=== PATIENT | male | born 1980 | race Caucasian/White ===

== ENCOUNTER 2018-07-23 04:35 | Emergency (ER) | payer OTHER ==
[~2018-07-23] VITALS: Ht 188 cm; Wt 104.3 kg
[~2018-07-23 04:35] MED LIST: ACID CONTROL150 MG PO; ALAVERT10 MG PO; ANUCORT-HC25 MG RC; METAMUCIL1 PKT PO; NAPROSYN500 MG PO; NASAL SPRAY30 M1 NS; NORCO 5-325 TA1 EACH PO; OCEAN45 ML NS; SALINE NASAL SP45 ML NAS; TUCKS HEMORRH28.3 GM RC; VASELINE WHITE P5 GM TP
[2018-07-23] MEDS ORDERED: SERTRALINE HCL50 MG PO (04:51)
[2018-07-23] MEDS ORDERED: SEBEX SHAMPOO118 ML TOP (04:51)
[2018-07-23] MEDS ORDERED: TOPAMAX50 MG PO (04:52)
[2018-07-23] MEDS ORDERED: ZYRTEC10 M3 PO (04:52)
[2018-07-23] MEDS ORDERED: FLOVENT DISKUS50 MCG INH (04:52)
[2018-07-23] MEDS ORDERED: CLOTRIMAZOLE TOP (04:53)
[2018-07-23] MEDS ORDERED: SINGULAIR10 MG PO (04:53)
[2018-07-23] MEDS ORDERED: NAPROXEN500 MG PO (04:54)
[2018-07-23] MEDS ORDERED: INDERAL LA60 MG PO (04:54)
== END 2018-07-23 08:46 | disposition home or self-care (01) ==
LOC: ED 04:35
DX: N13.2 Hydronephrosis with renal and ureteral calculous obstruction (principal); G40.909 Epilepsy, unspecified, not intractable, without status epilepticus; K21.9 Gastro-esophageal reflux disease without esophagitis; E78.5 Hyperlipidemia, unspecified; Z87.442 Personal history of urinary calculi; Z87.891 Personal history of nicotine dependence; Z88.2 Allergy status to sulfonamides; Z88.1 Allergy status to other antibiotic agents; Z88.8 Allergy status to other drugs, medicaments and biological substances; Z79.899 Other long term (current) drug therapy
CPT/HCPCS: 74176; 76870; 80053; 83690; 85025; 96361; 96374; 96375; 99284-25; J1170; J2405; J7030

== ENCOUNTER 2020-01-30 14:43 | Emergency (ER) | payer OTHER ==
[~2020-01-30] VITALS: Ht 188 cm; Wt 104.3 kg
[~2020-01-30 14:43] MED LIST changes: +CLOTRIMAZOLE TOP; +FLOVENT DISKUS50 MCG INH; +INDERAL LA60 MG PO; +NAPROXEN500 MG PO; +SEBEX SHAMPOO118 ML TOP; +SERTRALINE HCL50 MG PO; +SINGULAIR10 MG PO; +TOPAMAX50 MG PO; +ZYRTEC10 M3 PO
[2020-01-30] MEDS ORDERED: FAMOTIDINE40 MG PO (14:59)
== END 2020-01-30 20:58 | disposition home or self-care (01) ==
LOC: ED 14:43
DX: N13.2 Hydronephrosis with renal and ureteral calculous obstruction (principal); K80.20 Calculus of gallbladder without cholecystitis without obstruction; Z87.442 Personal history of urinary calculi; K21.9 Gastro-esophageal reflux disease without esophagitis; E78.5 Hyperlipidemia, unspecified; G43.909 Migraine, unspecified, not intractable, without status migrainosus; Z88.8 Allergy status to other drugs, medicaments and biological substances; Z88.2 Allergy status to sulfonamides; Z88.1 Allergy status to other antibiotic agents; Z79.899 Other long term (current) drug therapy
CPT/HCPCS: 51798; 74176; 80053; 81001; 85025; 96361; 96374; 96375; 96376; 99284-25; J1170; J2405; J2550; J7030

== ENCOUNTER 2020-04-09 16:09 | Emergency (ER) | payer OTHER ==
[~2020-04-09] VITALS: Ht 188 cm; Wt 104.3 kg
[~2020-04-09 16:09] MED LIST changes: +FAMOTIDINE40 MG PO
[2020-04-09] MEDS ORDERED: NASACORT10.8 ML NAS (16:22)
[2020-04-09] MEDS ORDERED: TRIDERM28.4 GM TOP (16:23)
== END 2020-04-09 19:24 | disposition home or self-care (01) ==
LOC: ED 16:09
DX: G43.909 Migraine, unspecified, not intractable, without status migrainosus (principal); R53.1 Weakness; K21.9 Gastro-esophageal reflux disease without esophagitis; E78.5 Hyperlipidemia, unspecified; Z87.891 Personal history of nicotine dependence; Z88.8 Allergy status to other drugs, medicaments and biological substances; Z88.2 Allergy status to sulfonamides; Z88.1 Allergy status to other antibiotic agents; Z79.899 Other long term (current) drug therapy
CPT/HCPCS: 70450; 80048; 85025; 96374; 96375; 99284-25; J0780; J1100; J1200; J1885; J2765; J7030